=== PATIENT | female | born 1985 | race Caucasian/White ===

== ENCOUNTER 2016-11-14 12:06 | Observation (INO) | payer MEDICAID ==
[~2016-11-14] VITALS: Ht 160 cm; Wt 100.0 kg
[2016-11-14] VITALS (10 sets, daily range): BP systolic 134–155; BP diastolic 57–79; PULSE 96–117; TEMP 98.4–99.3
[~2016-11-14 12:06] MED LIST changes: -MAG-OX 400400 MG/TAB PO; -PROVERA 2.5MG2.5 MG PO; -ULTRAM 50MG TAB50 MG PO
[2016-11-14] MEDS ORDERED: MAG-OX 400400 MG/TAB PO (12:20)
[2016-11-14 14:17] LABS: ADJUSTED CALCIUM 8.7 mg/dL (8.4-10.2); ALBUMIN 4.3 gm/dL (3.5-5.0); BILIRUBIN,TOTAL 0.9 mg/dL (0.0-1.0); CALCIUM 8.9 mg/dL (8.4-10.2); CREATININE, serum 0.74 mg/dL (0.52-1.25); POTASSIUM 3.6 mmol/L (3.4-5.0); TOTAL PROTEIN 7.4 gm/dL (6.4-8.2)
[2016-11-14 22:11] LABS: THYROID STIMULATING HORMONE 2.1 uIU/mL (0.465-4.680)
[2016-11-15] VITALS (7 sets, daily range): BP systolic 130–163; BP diastolic 68–102; PULSE 88–105; TEMP 97.7–98.9
[2016-11-15 08:28] LABS: MEAN CORPUSCULAR HGB CONC 25 g/dl (33.0-37.0); WHITE BLOOD COUNT 6.8 K/mm3 (4.8-10.8)
[2016-11-15 08:35] LABS: MEAN CELL VOLUME 60 fl (80.0-100.0); MEAN CORPUSCULAR HEMOGLOBIN 15 pg (27.0-31.0)
[2016-11-15 08:58] LABS: PLATELET COUNT 323 K/mm3 (130-400); RED BLOOD COUNT 4.74 M/mm3 (4.10-5.30); REDCELL DISTRIBUTION WIDTH-CV 28.1 % (11.5-14.5)
[2016-11-15 09:06] LABS: HEMOGLOBIN 7.1 g/dl (12.5-16.0)
[2016-11-15 09:07] LABS: HEMATOCRIT 28.2 % (37.0-47.0)
[2016-11-15 16:27] LABS: CHLAMYDIA/TRACH by PCR Female NOT DETECTED; NEISSERIA GON by PCR Female NOT DETECTED
[2016-11-15] MEDS ORDERED: PROVERA 2.5MG2.5 MG PO (19:45)
== END 2016-11-15 20:00 | disposition home or self-care (01) ==
LOC: COL.ER 12:06 → OB 14:06
PROVIDERS: Emergency Medicine; Obstetrics & Gynecology
DX: N93.8 Other specified abnormal uterine and vaginal bleeding (principal); D50.0 Iron deficiency anemia secondary to blood loss (chronic); E66.9 Obesity, unspecified
CPT/HCPCS: 99222; G0378; J7040; P9016

== ENCOUNTER → 2016-11-14 | Outpatient (CLI) | payer MEDICAID ==
[~2016-11-14] MED LIST: B-12100 MCG PO; CALCIUM1 CAP PO; FISH OIL500 MG PO; MAG-OX 400400 MG/TAB PO; MORPHINE 1515 MG/TAB PO; PERCOCET 500 MG1 TAB; PRENATAL1 TA1 PO; PROVERA 2.5MG2.5 MG PO; SUPER EPA W/BO400 MG PO; ULTRAM 50MG TAB50 MG PO; VITAMIN C500 MG PO
[2016-11-14 12:09] LABS: BASO % 0.5 % (0.0-2.0); EOS # 0.1 (0.0-0.7); EOS % 1.9 % (0-4.0); GRAN # 4.5 (1.4-6.5); GRAN % 70.7 % (42.2-75.2); LYMPH # 1.3 (1.2-3.4); LYMPH % 20.2 % (20.0-51.0); MEAN CELL VOLUME 55 fl (80.0-100.0); MEAN CORPUSCULAR HGB CONC 23 g/dl (33.0-37.0); MONO # 0.4 (0.1-0.6); MONO % 6.2 % (1.7-9.3); PLATELET COUNT 349 K/mm3 (130-400); REDCELL DISTRIBUTION WIDTH-CV 22.6 % (11.5-14.5); WHITE BLOOD COUNT 6.3 K/mm3 (4.8-10.8)
[2016-11-14 12:51] LABS: TOTAL IRON BINDING CAPACITY 511 ug/dL (265-497)
[2016-11-14 13:18] LABS: HEMOGLOBIN 5.5 g/dl (12.5-16.0); MEAN CORPUSCULAR HEMOGLOBIN 13 pg (27.0-31.0)
[2016-11-14 14:06] LABS: FERRITIN 3 ng/mL (6-137)
== END ==
LOC: COL.LAB 10:57
PROVIDERS: Registered Nurse
DX: Z01.89 Encounter for other specified special examinations (principal)

== ENCOUNTER 2016-12-01 19:03 | Emergency (ER) | payer MEDICAID ==
[~2016-12-01] VITALS: Ht 160 cm; Wt 100.0 kg
[~2016-12-01 19:03] MED LIST changes: +MAG-OX 400400 MG/TAB PO; +PROVERA 2.5MG2.5 MG PO
[2016-12-01 19:07] VITALS: TEMP 98.3
[2016-12-01 19:50] LABS: BASO % 0.3 % (0.0-2.0); EOS # 0.1 (0.0-0.7); EOS % 1.1 % (0-4.0); GRAN # 10.3 (1.4-6.5); GRAN % 80.2 % (42.2-75.2); LYMPH # 1.8 (1.2-3.4); LYMPH % 13.9 % (20.0-51.0); MEAN CELL VOLUME 64 fl (80.0-100.0); MEAN CORPUSCULAR HGB CONC 26 g/dl (33.0-37.0); MONO # 0.5 (0.1-0.6); PLATELET COUNT 693 K/mm3 (130-400); RED BLOOD COUNT 5.04 M/mm3 (4.10-5.30); REDCELL DISTRIBUTION WIDTH-CV 32.7 % (11.5-14.5); WHITE BLOOD COUNT 12.8 K/mm3 (4.8-10.8)
[2016-12-01 19:57] LABS: INR 1.3 (0.8-3.0); PROTHROMBIN TIME 14.3 SECONDS (9.7-12.8)
[2016-12-01 20:03] LABS: HEMATOCRIT 32.3 % (37.0-47.0); HEMOGLOBIN 8.5 g/dl (12.5-16.0); MEAN CORPUSCULAR HEMOGLOBIN 17 pg (27.0-31.0)
[2016-12-01] MEDS ORDERED: ULTRAM 50MG TAB50 MG PO (20:35)
[2016-12-01 21:08] VITALS: BP 158/92; PULSE 96
== END 2016-12-01 21:12 | disposition home or self-care (01) ==
LOC: COL.ER 19:03
PROVIDERS: Emergency Medicine
DX: N93.8 Other specified abnormal uterine and vaginal bleeding (principal)
CPT/HCPCS: J1170; J1885; J7030

== ENCOUNTER → 2017-01-22 | Outpatient (CLI) | payer MEDICAID ==
[~2017-01-22] MED LIST changes: +ULTRAM 50MG TAB50 MG PO
== END ==
LOC: COL.VAS 08:45
DX: I10 Essential (primary) hypertension (principal); R01.1 Cardiac murmur, unspecified